=== PATIENT | female | born 1965 | race Caucasian/White ===

== ENCOUNTER → 2016-11-16 | Outpatient (CLI) | payer OTHER ==
[~2016-11-16] VITALS: Ht 160 cm; Wt 113.4 kg
[~2016-11-16] MED LIST: ARICEPT PO; BUSPIRONE HCL10 MG PO; CATAPRES0.2 MG PO; CYMBALTA60 MG PO; D AMPHETAMINE PO; DEXTROAMPHETAMIN5 M2 PO; DIAZEPAM PO; DONEPEZIL HCL10 MG PO; ENDOCET 5-3251 EACH PO; FLEXERIL PO; FLOVENT HFA 1110 MCG IH; FLOVENT HFA 1110 MCG INH; GABAPENTIN PO; GABAPENTIN800 M1 PO; HYDROCODONE-APA1 TA1 PO; LISINOPRIL-HCT1 EACH PO; MINIPRESS5 MG PO; MOBIC7.5 MG PO; MULTIVITAMINS PO; NEURONTIN 400400 M1 PO; PRAZOSIN 1 MG CA1 M1 PO; SERTRALINE PO; VENTOLIN HFA 1818 GM INH; [UNRECOGNIZED DRUG - OTHER] PO
--- NOTE | ~2016-11-16 | S ---
[facility] [place] [address] [place] [address] SURGICAL PATH RPT PROCEDURE Name: ENZO CALLOWAY Room #: REG [facility]..#: [id number] Admission: 11/16/16 Date of : 61 Discharge: Report #: [id number] Path Case #: [id number] PATHOLOGY REPORT COLLECTION DATE: 11/16/2016 RECEIVED DATE: 11/16/2016 SUBMITTING PHYS: Dr. Randell Alvarado OTHER PHYS: Dr. Pat Ny SPECIMEN(S) RECEIVED: A.Polyp at proximal ascending colon (forcep) B.Polyp at 20 cm (snare) * * * * * * * * * * * * FINAL DIAGNOSIS: A. Polyp, at proximal ascending colon, endoscopic biopsy: - Minute tubular adenoma. - Negative for high-grade dysplasia. B. Polyp, at 20 cm, endoscopic biopsy: - Hyperplastic polyp. - Negative for dysplasia. (IUV:pit; 11/19/2016) PATHOLOGIST: Azul Reyes M.D. REPORT ELECTRONICALLY SIGNED BY: Azul Reyes M.D. DATE/TIME: 11/19/2016 16:11 * * * * * * * * * * * * GROSS PATHOLOGY: A. Received in formalin labeled "Enzo Calloway, polyp at proximal ascending colon," is a segment of glaser soft tissue measuring 0.4 cm in maximum dimension. The specimen is submitted entirely in cassette A1. B. Received in formalin labeled "Enzo Calloway, polyp at 20 cm," is a segment of glaser soft tissue measuring 0.5 cm in maximum dimension. The specimen is submitted entirely in cassette B1. (KAH; 11/17/2016) CLINICAL HISTORY: Pre-op diagnosis: Family history of colon cancer and colon polyps Post-op diagnosis: Colon polyps, diverticulosis INITIAL CPT CODE(S): A; 30668 B; 61914 Professional services performed by [facility] at [facility] [address] [place] [address] SURGICAL PATH RPT PROCEDURE Name: ENZO CALLOWAY Room #: REG [facility].#: [id number] Admission: 11/16/16 Date of : 61 Discharge: Report #: [id number] Path Case #: [id number] [address], [place] [address] [facility] by [facility] at [address] [place] [address], [facility] [address] [address]. [place] [address] PHONE: [phone] DIRECTOR: Archie Phillips M.D. * * * END OF REPORT * * *
== END | disposition home or self-care (01) ==
LOC: GI 06:28
DX: Z09 Encounter for follow-up examination after completed treatment for conditions other than malignant neoplasm (principal); D12.2 Benign neoplasm of ascending colon; K63.5 Polyp of colon; K21.9 Gastro-esophageal reflux disease without esophagitis; K57.30 Diverticulosis of large intestine without perforation or abscess without bleeding; I10 Essential (primary) hypertension; J45.909 Unspecified asthma, uncomplicated; F32.89 Other specified depressive episodes; F41.8 Other specified anxiety disorders; F17.210 Nicotine dependence, cigarettes, uncomplicated; Z79.899 Other long term (current) drug therapy; Z80.0 Family history of malignant neoplasm of digestive organs; Z98.890 Other specified postprocedural states
CPT/HCPCS: 62110; 62900

== ENCOUNTER → 2017-01-11 | Outpatient (CLI) | payer OTHER ==
[~2017-01-11] VITALS: Ht 160 cm; Wt 119.3 kg
[~2017-01-11] MED LIST changes: +MOBIC15 MG PO
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
[2017-01-11 09:56] VITALS: BP 158/85
== END | disposition home or self-care (01) ==
LOC: PAIN 01-09 13:08
DX: M54.16 Radiculopathy, lumbar region (principal); I10 Essential (primary) hypertension; J45.909 Unspecified asthma, uncomplicated; F41.8 Other specified anxiety disorders; F98.8 Other specified behavioral and emotional disorders with onset usually occurring in childhood and adolescence; Z87.820 Personal history of traumatic brain injury; Z98.890 Other specified postprocedural states; Z79.899 Other long term (current) drug therapy; F17.210 Nicotine dependence, cigarettes, uncomplicated

== ENCOUNTER → 2017-02-01 | Outpatient (CLI) | payer OTHER ==
[~2017-02-01] VITALS: Ht 162.6 cm; Wt 120.7 kg
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
[2017-02-01 10:28] VITALS: BP 163/87
== END | disposition home or self-care (01) ==
LOC: PAIN 07:48
DX: M54.16 Radiculopathy, lumbar region (principal); Z68.42 Body mass index [BMI] 45.0-49.9, adult; F17.210 Nicotine dependence, cigarettes, uncomplicated

== ENCOUNTER → 2017-02-14 | Outpatient (CLI) | payer OTHER ==
[~2017-02-14] VITALS: Ht 162.6 cm; Wt 117.5 kg
--- NOTE | ~2017-02-14 | HPC ---
[facility] [place] [address] PAIN MANAGEMENT CONSULTATION Name: ENZO CALLOWAY Room #: REG [facility].#: [id number] Admission: 02/14/17 Attend Phys: Paulo Muse, Discharge: Date of : 61 Report #: [id number] THIS REPORT FOR: //name// CC: Pat Muse The patient is a very pleasant 52-year-old female, prior seen on 02/01/2017. She had a single epidural injection with near 100% relief for a long time. Pain has begun to recur, we sought authorization for epidural injection under fluoroscopy today. Again, 100% relief was in 2013. She had on 01/11/2017 epidural injection with greater than 50% relief for 4-6 weeks. We sought authorization for repeat epidural injection under fluoroscopy today. Today, she notes the pain is 7 on a VAS, primarily low back and leg, bilateral, exacerbated with standing, walking and bending. VITAL SIGNS: Otherwise stable. ASSESSMENT: Symptomatic lumbar radiculopathy. PROCEDURE: Lumbar epidural steroid injection. PROCEDURE NOTE: After both written and informed consent to include risk of spinal cord damage, increased pain, weakness and dural puncture, the patient was taken to the fluoroscopy suite, placed in the prone position. After sterile prep and drape, a skin wheal with lidocaine was raised. A 22-gauge epidural Tuohy needle was inserted in the midline at L4-L5 with good loss to resistance. Negative aspiration for cerebrospinal fluid or blood was noted. Then 1 mL of Omnipaque under biplanar fluoroscopy showed good spread within the epidural space. This was followed with 80 mg of triamcinolone plus 1 mL of 1.5% preservative-free Xylocaine, 0.5 mL Xylocaine was then injected to flush the needle; it was removed. The patient was monitored for an appropriate period of time and discharged in good and stable condition. Follow up in 3 weeks for reevaluation, earlier if needed. <ELECTRONICALLY SIGNED> By: Paulo Muse DO 02/18/17 0840 1232 1005 Paulo Muse DO /nt
[2017-02-14 08:06] VITALS: BP 141/80
== END | disposition home or self-care (01) ==
LOC: PAIN 06:25
DX: M54.16 Radiculopathy, lumbar region (principal); F17.200 Nicotine dependence, unspecified, uncomplicated

== ENCOUNTER 2018-03-08 15:50 | Inpatient (IN) | payer OTHER ==
[~2018-03-08] VITALS: Ht 160 cm; Wt 125.2 kg
--- NOTE | ~2018-03-08 | 2DMMODE ---
[facility] [address] [place] [address] 2 D/M-MODE ECHOCARDIOGRAM Name: ENZO CALLOWAY Room #: 457-P ADM IN M.R.#: [id number] Admission: 03/08/18 Attend Phys: Sanya Olsen, Discharge: Date of : 61 Date of Service: 03/10/18 1027 Report #: [id number] THIS REPORT FOR: //name// APPROVED REPORT Study performed: 03/10/2018 08:48:03 EXAM: Comprehensive 2D, Doppler, and color-flow Echocardiogram Patient Location: Echo lab Room #: [facility] Status: routine BSA: 2.22 HR: 64 bpm BP: 146/78 mmHg Rhythm: NSR Other Information Study Quality: Adequate/morbidly obese Indications Syncope. Hx: HTN, seizures 2D Dimensions RVDd: 35.69 mm IVSd: 11.09 (7-11mm) LVOT Diam: 21.25 (18-24mm) LVDd: 51.21 mm PWd: 8.98 (7-11mm) Ascending Ao: 35.10 (22-36mm) LVDs: 32.70 (25-40mm) Aortic Root: 31.98 mm Volumes Left Atrial Volume (Systole) Single Plane 4CH: 39.25 mL Single Plane 2CH: 48.17 mL LA ESV Index: 22.00 mL/m2 Aortic Valve AoV Peak Shorty.: 1.72 m/s AO Peak Gr.: 11.78 mmHg LVOT Max P.20 mmHg LVOT Max V: 1.25 m/s ZANA Vmax: 2.57 cm2 Mitral Valve E/A Ratio: 1.4 MV Decel. Time: 193.12 ms MV E Max Shorty.: 1.04 m/s [facility] [place] [address] [place] [address] 2 D/M-MODE ECHOCARDIOGRAM Name: ENZO CALLOWAY Room #: [address] [place] [address] IN ..#: [id number] Admission: 03/08/18 Attend Phys: Sanya Olsen, Discharge: Date of : 61 Date of Service: 03/10/18 1027 Report #: [id number] MV A Shorty.: 0.72 m/s MV PHT: 56.01 ms IVRT: 65.74 ms Pulmonary Valve PV Peak Shorty.: 1.35 m/s PV Peak Gr.: 7.32 mmHg Pulmonary Vein P Vein S: 0.71 m/s P Vein A: 0.32 m/s P Vein D: 0.63 m/s P Vein A Dur.: 120.0 msec P Vein S/D Ratio: 1.13 Tricuspid Valve RAP Estimate: 5.00 mmHg Left Ventricle The left ventricle is normal size. There is normal LV segmental wall motion. There is normal left ventricular wall thickness. Left ventricular systolic function is normal. LVEF is 60-65%. The left ventricular diastolic function is normal. Right Ventricle The right ventricle is normal size. The right ventricular systolic function is normal. Atria The left atrium size is normal. The right atrium size is normal. Aortic Valve The aortic valve is normal in structure. No aortic regurgitation is present. There is no aortic valvular stenosis. Mitral Valve The mitral valve is normal in structure. Trace to mild mitral regurgitation. Tricuspid Valve The tricuspid valve is normal in structure. There is no tricuspid valve regurgitation noted. Unable to assess PA pressure. Pulmonic Valve Pulmonic valve is not well visualized. There is no pulmonic valvular regurgitation noted. [employer] [place] [facility] [address] [place] [address] 2 D/M-MODE ECHOCARDIOGRAM Name: ENZO CALLOWAY Room #: 457-P [facility] IN ..#: [id number] Admission: 03/08/18 Attend Phys: Sanya Olsen, Discharge: Date of : 61 Date of Service: 03/10/18 1027 Report #: [id number] The aortic root is normal in size. The ascending aorta is normal in size. IVC is normal in size and collapses >50% with inspiration. Pericardium There is no pericardial effusion. <Conclusion> The left ventricle is normal size. LVEF is 60-65%. The aortic valve is normal in structure. The mitral valve is normal in structure. Trace to mild mitral regurgitation. The tricuspid valve is normal in structure. Pulmonic valve is not well visualized. There is no pericardial effusion. <ELECTRONICALLY SIGNED> By: Jesus Ahn MD 03/10/18 1027 1027 102 Jesus Ahn MD /INF
--- NOTE | ~2018-03-08 | EKG ---
[address] [address] ELECTROCARDIOGRAM REPORT Name: ENZO CALLOWAY Room #: 457-P ADM IN M.R.#: [id number] Admission: 03/08/18 Attend Phys: Sanya Olsen MD Discharge: Date of : 61 Report #: [id number] THIS REPORT FOR: //name// [facility] ED Test Date: 2018-03-08 Test Time: 15:56:59 Pat Name: ENZO CALLOWAY Department: Room: [facility] Gender: F [employer]ovoltaic Installer: CALEB : 1965 Requested By: Jhonny Rojsa Order Number: [id number] MD: Kendrick Cassidy Measurements Intervals [place] Rate: 85 P: 35 VA: 153 QRS: 19 QRSD: 98 T: 55 QT: 368 QTc: 438 Interpretive Statements Sinus rhythm No previous ECG available for comparison Electronically Signed On 03-10-2018 8:30:05 CDT by Kendrick Cassidy [email or web address] <ELECTRONICALLY SIGNED> By: Kendrick Cassidy MD 03/10/18 0830 1556 1556 MD JOSE M Tracey
[2018-03-08 15:53] VITALS: BP 87/37
[2018-03-08] MEDS ORDERED: XANAX 0.5 MG0.5 MG PO (16:29)
[2018-03-08 16:56] LABS: ABSOLUTE NEUTROPHILS 6.1 thou/uL (1.4-8.2); BASOPHILS 0.6 % (0.0-2.0); EOSINOPHILS 3.9 % (0.0-3.0); HEMATOCRIT 36.5 % (37.0-47.0); HEMOGLOBIN 12.7 gm/dL (12.0-15.0); LYMPHOCYTES 18.8 % (24.0-44.0); MCH 31.8 pg (26.0-34.0); MCHC 34.8 g/dL (28.0-37.0); MCV 91.5 fL (80.0-100.0); MONOCYTES 5.1 % (1.0-8.0); PLATELET COUNT 255 thou/uL (150-400); POLYS 71.6 % (36.0-66.0); RBC 3.99 mil/uL (4.20-5.00); RDW 13.9 % (10.5-14.5); WBC 8.5 thou/uL (4.0-11.0)
[2018-03-08 17:12] LABS: ANION GAP 9 mmol/L (7-16); BUN 33 mg/dL (7-18); CALCIUM 9.2 mg/dL (8.5-10.1); CHLORIDE 103 mmol/L (98-107); CO2 25 mmol/L (21-32); CREATININE 1.8 mg/dL (0.6-1.0); GLUCOSE 118 mg/dL (74-106); POTASSIUM 4.2 mmol/L (3.5-5.1); SODIUM 137 mmol/L (136-145)
[2018-03-08 17:17] LABS: ALBUMIN 3.3 g/dL (3.4-5.0); DIRECT BILIRUBIN < 0.1 mg/dL (<0.1-0.3); SGOT 15 U/L (15-37); SGPT 31 U/L (30-65); TOTAL BILIRUBIN 0.2 mg/dL (<0.1-1.0); TOTAL PROTEIN 6.7 g/dL (6.4-8.2); TROPONIN-I <0.06 ng/mL (<0.06)
[2018-03-08 17:32] LABS: URINE BILIRUBIN NEGATIVE (Negative); URINE BLOOD NEGATIVE (Negative); URINE CLARITY CLEAR; URINE COLOR YELLOW; URINE GLUCOSE-RANDOM* NEGATIVE (Negative); URINE KETONES TRACE (Negative); URINE NITRITE-REFLEX NEGATIVE (Negative); URINE PROTEIN (DIPSTICK) 1+ (Negative); URINE SPECIFIC GRAVITY 1.015 (1.005-1.035); URINE UROBILINOGEN 0.2 E.U./dl (0.2-1.0)
[2018-03-08 17:34] LABS: URINE LEUKOCYTES-REFLEX 1+ (Negative)
[2018-03-08 17:41] LABS: AMP/METHAMP Negative (Negative); BARBITURATES Negative (Negative); BENZODIAZEPINES POSITIVE (Negative); COCAINE Negative (Negative); METHADONE Negative (Negative); OPIATES POSITIVE (Negative); PCP Negative (Negative)
[2018-03-08 17:46] LABS: HYALINE CASTS 4-10 Moderate /LPF (None Seen); SQUAMOUS 4-10 Moderate /LPF (0-3)
[2018-03-08 17:47] LABS: MUCUS >6 Heavy strn/LPF (None Seen); URINE RBC 0-2 Rare /HPF (0-2)
[2018-03-08 17:48] LABS: BACTERIA-REFLEX 1-9 Few /HPF (None Seen); CRYSTALS None Seen /LPF (None Seen)
[2018-03-08 18:37] VITALS: BP 95/43
[2018-03-08 18:46] VITALS: BP 95/43
[2018-03-08 19:09] LABS: TSH 4.152 uIU/mL (0.358-3.740)
[2018-03-08 22:48] VITALS: BP 95/43
[2018-03-09 00:10] VITALS: BP 114/62
[2018-03-09 03:25] VITALS: BP 120/57
[2018-03-09 05:53] LABS: HEMATOCRIT 33.4 % (37.0-47.0); HEMOGLOBIN 11.3 gm/dL (12.0-15.0); MCHC 33.9 g/dL (28.0-37.0); MCV 91.3 fL (80.0-100.0); RBC 3.66 mil/uL (4.20-5.00); RDW 13.5 % (10.5-14.5); WBC 7.3 thou/uL (4.0-11.0)
[2018-03-09 06:00] LABS: CALCIUM 8.8 mg/dL (8.5-10.1); CREATININE 1.4 mg/dL (0.6-1.0); POTASSIUM 3.8 mmol/L (3.5-5.1)
[2018-03-09 07:43] VITALS: BP 139/71
[2018-03-09 15:03] VITALS: BP 144/80
[2018-03-09 20:05] VITALS: BP 155/85
[2018-03-09 22:09] VITALS: BP 155/85
[2018-03-10 04:56] VITALS: BP 146/78
[2018-03-10 06:05] LABS: HEMATOCRIT 36.7 % (37.0-47.0); HEMOGLOBIN 12.2 gm/dL (12.0-15.0); MCH 30.3 pg (26.0-34.0); MCHC 33.3 g/dL (28.0-37.0); MCV 90.8 fL (80.0-100.0); RBC 4.05 mil/uL (4.20-5.00); RDW 13.8 % (10.5-14.5); WBC 6.2 thou/uL (4.0-11.0)
[2018-03-10 06:20] LABS: CALCIUM 9.1 mg/dL (8.5-10.1); CREATININE 1.1 mg/dL (0.6-1.0); MAGNESIUM 1.9 mg/dL (1.8-2.4); POTASSIUM 4.3 mmol/L (3.5-5.1)
[2018-03-10 08:00] VITALS: BP 144/66
[2018-03-10] MEDS ORDERED: LISINOPRIL5 MG PO (11:52)
[2018-03-10] MEDS ORDERED: KEFLEX500 M1 PO (11:56)
[2018-03-10 12:25] VITALS: BP 144/66
== END 2018-03-10 15:55 | disposition home or self-care (01) | DRG 871 ==
LOC: ER 15:50 → EROBS 18:19 → 4W 18:19
PROVIDERS: Emergency Medicine; Internal Medicine
DX: A41.9 Sepsis, unspecified organism (principal); N17.0 Acute kidney failure with tubular necrosis; L03.316 Cellulitis of umbilicus; N39.0 Urinary tract infection, site not specified; E44.1 Mild protein-calorie malnutrition; Z68.42 Body mass index [BMI] 45.0-49.9, adult; I95.1 Orthostatic hypotension; J45.909 Unspecified asthma, uncomplicated; F41.9 Anxiety disorder, unspecified; F32.9 Major depressive disorder, single episode, unspecified; K21.9 Gastro-esophageal reflux disease without esophagitis; G62.9 Polyneuropathy, unspecified; I10 Essential (primary) hypertension; F17.210 Nicotine dependence, cigarettes, uncomplicated; N28.89 Other specified disorders of kidney and ureter; E66.9 Obesity, unspecified; Z90.49 Acquired absence of other specified parts of digestive tract; Z87.81 Personal history of (healed) traumatic fracture; Z87.820 Personal history of traumatic brain injury; Z79.51 Long term (current) use of inhaled steroids; Z79.899 Other long term (current) drug therapy; Z23 Encounter for immunization
CPT/HCPCS: 10045

== ENCOUNTER 2018-10-07 00:49 | Emergency (ER) | payer OTHER ==
[~2018-10-07] VITALS: Ht 162.6 cm; Wt 104.3 kg
[~2018-10-07 00:49] MED LIST changes: +KEFLEX500 M1 PO; +LISINOPRIL5 MG PO; +XANAX 0.5 MG0.5 MG PO
[2018-10-07] MEDS ORDERED: PREDNISONE 20 M20 MG PO (04:12)
[2018-10-07 04:19] VITALS: BP 168/90
== END 2018-10-07 04:20 | disposition home or self-care (01) ==
LOC: ER 00:49
DX: J45.901 Unspecified asthma with (acute) exacerbation (principal); F17.210 Nicotine dependence, cigarettes, uncomplicated; F32.9 Major depressive disorder, single episode, unspecified; F41.9 Anxiety disorder, unspecified; I10 Essential (primary) hypertension; Z90.49 Acquired absence of other specified parts of digestive tract

== ENCOUNTER → 2020-06-08 | Outpatient (CLI) | payer OTHER ==
[~2020-06-08] VITALS: Ht 162.6 cm; Wt 132.0 kg
[~2020-06-08] MED LIST changes: +FLOVENT DISKU100 MCG INH; +NEURONTIN800 MG PO; +PREDNISONE 20 M20 MG PO; +PROAIR DIGIHAL90 MCG INH
[2020-06-08 14:56] VITALS: BP 145/75
--- NOTE | 2020-06-08 15:20 | NUR ---
Pain Clinic Assessment: 1. History of Osteoarthritis: BACK History of Rheumatoid Arthritis: Not Applicable 2. Height: 5 ft. 4 in. 162.6 cm. Weight: 291.0 lb. oz. 131.997 kg. Patient's BMI: 49.9 3. Vital Signs: BP: 145/75 Pulse: 88 Resp: 20 Temp: 02 Sat: 97 ECG Mon: 4. Pain Intensity: 6 5. Fall Risk: Dizziness: N Needs help standing or walking: N Fallen in the last 3 months: N Fall risk comments: 6. Patient on Blood Thinner: None 7. History of Hypertension: Y 8. Opioid Therapy greater than 6 weeks: Y Opiate Contract Signed: 9. Risk Assessment Tool Provided: HIGH 9 10. Functional Assessment Tool: / 11. Recreational Drug Use: Never Drug Type: Tobacco Use: Former Smoker Tobacco Type: Amount or Packs/day: How Many Years: Alcohol Use: No Frequency: Quant:
--- NOTE | 2020-06-14 08:07 | HPC ---
[facility] [place] [address] PAIN MANAGEMENT CONSULTATION Name: ENZO CALLOWAY Room #: REG [facility] M..#: [id number] Admission: 06/08/20 Attend Phys: Palomo Muse DO Discharge: Date of : 61 Report #: [id number] THIS REPORT FOR: cc: Pat Ny MD, Sara A. MD Johnson, James E. DO ~ DATE OF SERVICE: 06/08/2020 CHIEF COMPLAINT: Left buttock and posterolateral thigh pain. HISTORY OF PRESENT ILLNESS: As you know, the patient is a class 3 severely morbidly obese 55-year-old female, who reports a 6-month history of low-back pain, left-sided, specifically with posterolateral thigh involvement. The patient has sought consultation and treatment through [facility] for pain relief, seeing nurse practitioner, Yumiko Dooley, who evaluated the patient and determined her symptoms appear to be related to SI joint dysfunction. The patient was subsequently referred to our clinic to trial a left intra-articular SI joint injection under fluoroscopic guidance to address ongoing pain. The patient reports her pain is steady in nature. She describes the pain as shooting, crushing, gnawing, throbbing, sharp and stabbing when describing symptoms. She places current pain score 6/10, daily average at 6-10/10, worst pain has been 10+++/10. She indicates that pain is exacerbated with movement, specifically standing and sitting, improves with heat and cold compresses and rest. She has been referred to our service to discuss the possibility of undergoing a left SI joint injection under fluoroscopic guidance. PAST MEDICAL HISTORY: 1. Asthma. 2. Hypertension. 3. Seasonal allergies. 4. Severe morbid obesity. 5. Anxiety disorder. 6. Depression. 7. Chronic kidney disease. 8. PTSD. 9. Left sacroiliac joint pain. PAST SURGICAL HISTORY: Right humerus ORIF in 2008, cholecystectomy in 2016. SOCIAL HISTORY: The patient has a remote history of tobacco abuse, quit at age 19. Denies IV or illicit drug use. Denies any chronic alcohol use. 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 She is receiving disability income. She is not in litigation in regards to pain. She is unaccompanied today. [address] [address] PAIN MANAGEMENT CONSULTATION Name: ENZO CALLOWAY Room #: REG [facility] Swapnil.#: [id number] Admission: 06/08/20 Attend Phys: Palomo Muse DO Discharge: Date of : 61 Report #: [id number] REVIEW OF SYSTEMS: Positive for increased weight, night sweats, fatigue and weakness, wearing corrective eyewear, shortness of breath with walking, asthma, wheezing, changes in bowel movements, constipation, abdominal pain, nocturia, incontinence and dribbling to urine, rash and itching, numbness and tingling sensations, head injury, memory loss with confusion, nervousness, depression, insomnia. All other review of systems negative per 12-point review of systems other than those listed in history of present illness. Pain impact score 46/70, severe interference of daily activities secondary to pain. ALLERGIES: NONSTEROIDAL ANTI-INFLAMMATORIES and CIMETIDINE. CURRENT MEDICATIONS: Duloxetine 60 mg twice a day, Minipress 10 mg once a day, dextroamphetamine 5 mg 3 tabs twice a day, buspirone 5 mg b.i.d., oxycodone 5/325 one tab t.i.d. p.r.n., alprazolam 0.5 mg p.o. at bedtime, albuterol 2 puffs q.4 hours p.r.n., lisinopril 5 mg per day, Neurontin 800 mg 4 times a day, fluticasone 1 spray each nostril per day. IMAGING: No imaging available. PQRS: The patient has known arthritic changes of the lumbar spine, bilateral hips and knees. No rheumatoid arthritis. She is placing pain score today around 6/10. She is not a fall risk, has not had a fall in the last 3 months. She is not on blood thinners, but is treated for hypertension. She is on chronic opioids and has a high opioid addiction potential based on our assessment tool. Pain impact is 46/70, severe interference of daily activities secondary to pain. PHYSICAL EXAMINATION: VITAL SIGNS: Blood pressure 145/75, pulse 88, respiratory rate 20, O2 sat 97%. Height 5 feet 4 inches tall, weight 291 pounds, BMI calculated at 49.9. GENERAL: Well-developed, well-nourished, well-hydrated, class 3 severely morbidly obese female, appearing her stated age, pain is rated today around 6/10. HEENT: Normocephalic, atraumatic. Pupils are round and responsive. Extraocular muscles are intact. Hearing is intact. The patient is wearing a mask due to COVID-19 regulations. RESPIRATORY: Appears clear. No wheezes, rhonchi or rales. There are diminished breath sounds due to body habitus. CARDIOVASCULAR: Regular. Again, difficult to hear due to body habitus. No appreciable murmurs, gallops or rubs. GASTROINTESTINAL: Soft, severely obese. EXTREMITIES: Show no clubbing, no cyanosis, 1+ nonpitting lower extremity edema. MUSCULOSKELETAL: The patient has tenderness to palpation over the left sacroiliac joint, negative right. Lumbar range of motion appears normal, though somewhat limited by body habitus. Seated straight leg raising negative. Supine [facility] [address] [place] [address] PAIN MANAGEMENT CONSULTATION Name: ENZO CALLOWAY Room #: REG [facility]..#: [id number] Admission: 06/08/20 Attend Phys: Palomo Muse DO Discharge: Date of : 61 Report #: [id number] straight leg raising negative. Ne's test is negative. Modified Gaenslen's is limited by body habitus. Lumbar provocation testing is met with slight increase in left pain. Seated position exacerbates symptoms less. ASSESSMENT: 1. Left sacroiliac joint pain. 2. Chronic low-back pain. 3. Severe morbid obesity. PLAN: 1. The patient has been referred to our service by her neurosurgery team for evaluation for left SI joint pain. It would appear, based on physical exam and the descriptors the patient uses, this would be the source of symptoms. Unfortunately, I do not have imaging studies, but given the patient's age and body habitus, it would be consistent with left SI joint symptoms secondary to osteoarthritic changes. It is noted in Yumiko Dooley's note that there were arthritic changes noted on imaging. We have discussed with the patient the treatment options for SI joint dysfunction. The following was discussed with the patient today: 1. We discussed physical therapy, stretching exercises, stretching techniques and concerted effort at weight loss to address SI joint dysfunction. We discussed suggestions in medication management to address symptoms with nonsteroidal anti-inflammatories. We discussed left intraarticular SI joint injections for which the patient was referred to our clinic. We also discussed surgical options with the patient, with fusion of the SI joint, though given her body habitus, she may not be an ultimate candidate for fusion. After reviewing the risks and benefits of all the proposed treatment options, the patient chose to undergo the requested left SI joint injection under fluoroscopic guidance. 2. The patient has been advised risks and benefits of a left SI joint injection. These risks include, but are not necessarily limited to; bleeding, bruising, infection, worsening of pain, no relief of pain, temporary or permanent muscle weakness, temporary or permanent nerve damage, possible paralysis and . The patient states understood and wished to proceed. 3. No medication changes made at today's visit. We recommend the patient to continue current medical therapy as prior prescribed. 4. The patient will contact Yumiko Dooley over the next couple of weeks to advise of the efficacy of today's injection. I did advise the patient if she notes initial improvement in symptoms, but her symptoms do return quite quickly, that fusion options may be necessary given the lack of long-term efficacy. If the patient is seeing good and prolonged benefit with SI joint injections, we could certainly repeat these on an as needed basis. We will await the patient's response to the injections to determine whether or not this would be something necessary to continue. It was noted that the patient reported about 50% improvement today upon discharge from our clinic after undergoing the injection. 5. We will see the patient back in followup visit based on her response to the [address] [address] PAIN MANAGEMENT CONSULTATION Name: ENZO CALLOWAY Room #: REG [facility]#: [id number] Admission: 06/08/20 Attend Phys: Palomo E. Micha, DO Discharge: Date of : 61 Report #: [id number] SI joint injection provided today. Again, if the patient is seeing good and prolonged benefit, but has recurrence of symptoms, we would recommend the next in the SI joint injection series. If she notes only transient improvement in symptoms with recurrence of pain rapidly, she should look for more definitive treatments. 6. We wish to thank Yumiko Dooley for the opportunity to see this patient in consultation. We will keep you apprised of response to treatment as we address left SI joint pain. Again, we wish to thank you for the opportunity to see the patient in consultation. PROCEDURE NOTE DESCRIPTION OF PROCEDURE: Left SI joint injection under fluoroscopic guidance. This is the first procedure of the first series that the patient is undergoing. After obtaining written consent, the patient was taken back to the fluoroscopy suite and placed in a prone position with a pillow under the pelvis to decrease the lumbar lordosis. The skin of the gluteal-sacral area overlying the left sacroiliac joint was prepped and draped in an aseptic fashion. A medial to lateral oblique projection allowed separation of the anterior and posterior branches of the joint space. The skin and subcutaneous tissue overlying the target site of injection was anesthetized using 3 mL of 1% lidocaine. A 22-gauge 6-inch Chiba needle with a bent tip was directed into the inferior aspect of the sacroiliac joint using a posterior approach. A giving way at the needle hub was noted once the dorsal sacroiliac and interosseous ligaments were engaged. After negative aspiration for heme, a total of 0.5 mL of Omnipaque was injected, outlining the coin-shaped inferior recess of the joint. Provocation responses consisting of intense buttock pain were negative. After negative aspiration for heme, 3 mL of a solution containing 1 mL 40 mg per mL, 40 mg total triamcinolone, 2 mL of bupivacaine 0.5% was slowly injected. The needle was then retracted approximately [facility] and the needle track was flushed with 1 mL of 1% lidocaine. Needle was then removed. A sterile bandage was placed over the injection site. There were no new sensory deficits present in the lower extremities. The heart rate, pulse oximetry and blood pressure were continuously monitored after the procedure. There were no apparent complications. The patient tolerated the procedure well and was carefully escorted to the recovery room in stable condition. The VAS was 6/10 before the procedure and 3-4/10 ten minutes after the procedure. After meeting discharge criteria, the patient was discharged home. <ELECTRONICALLY SIGNED> By: Palomo Muse DO 06/14/20 [id number] Palomo Muse DO /nt
== END | disposition home or self-care (01) ==
LOC: PAIN 07:41
PROVIDERS: ATTEND Anesthesiology Pain Medicine
DX: M53.3 Sacrococcygeal disorders, not elsewhere classified (principal); M54.5 Low back pain; G89.29 Other chronic pain; I12.9 Hypertensive chronic kidney disease with stage 1 through stage 4 chronic kidney disease, or unspecified chronic kidney disease; N18.9 Chronic kidney disease, unspecified; M19.90 Unspecified osteoarthritis, unspecified site; F32.9 Major depressive disorder, single episode, unspecified; F41.9 Anxiety disorder, unspecified; J45.909 Unspecified asthma, uncomplicated; E66.01 Morbid (severe) obesity due to excess calories; Z98.890 Other specified postprocedural states; Z79.899 Other long term (current) drug therapy; Z68.42 Body mass index [BMI] 45.0-49.9, adult; Z79.891 Long term (current) use of opiate analgesic; Z88.8 Allergy status to other drugs, medicaments and biological substances

== ENCOUNTER → 2020-11-01 | Outpatient (CLI) | payer OTHER ==
[~2020-11-01] VITALS: Ht 162.6 cm; Wt 124.3 kg
--- NOTE | ~2020-11-01 | HPC ---
[facility] [place] [address] PAIN MANAGEMENT CONSULTATION Name: ENZO CALLOWAY Room #: REG [facility].#: [id number] Admission: 11/01/20 Attend Phys: Palomo Muse DO Discharge: Date of : 61 Report #: [id number] THIS REPORT FOR: cc: Pat Ny MD, Sara A. MD Johnson, James E. DO ~ DOC #: [id number] cc: Pat Ny MD, Yumiko Muse DO DATE OF SERVICE: 11/01/2020 REFERRING NURSE PRACTITIONER: Yumiko Dooley. PRIMARY CARE PHYSICIAN: Dr. Pat Ny CHIEF COMPLAINT: Left low back and buttock pain, left knee pain. HISTORY OF PRESENT ILLNESS: As you know, the patient is a 55-year-old class 3, severely morbidly obese 55-year-old female with a 9-month history of chronic low back pain, left-sided over the posterolateral thigh who was seen in consultation per the request of nurse practitioner, Yumiko Dooley with the [facility] to undergo the SI joint injection under fluoroscopic guidance. The patient underwent that procedure on 06/08/2020 with a reported 80% improvement in overall pain lasting for nearly 6 weeks. She has had a slow and progressive return of symptoms, returned today in followup visit requesting next in the series of SI joint injections. The patient is also complaining of increasing left knee pain and swelling over the left knee. She has yet to have any workup in regards to this issue. She returns today in followup visit for SI joint injection and to discuss further evaluation of this left knee issue. ALLERGIES: NONSTEROIDAL ANTI-INFLAMMATORIES AND CIMETIDINE. CURRENT MEDICATIONS: Gabapentin, lisinopril, fluticasone, albuterol, alprazolam, oxycodone, buspirone, dextroamphetamine, prazosin and Cymbalta. SOCIAL HISTORY: The patient has a remote tobacco history, quit at age 19. Denies IV or illicit drug use. Denies any chronic alcohol use. She is unaccompanied today. IMAGING: No new imaging available. PQRS: The patient has known arthritic changes of the lumbar spine, bilateral hips and knees. No rheumatoid arthritis. She is not a fall risk, has not had a fall in last 3 months. She is not on blood thinners, but is treated for hypertension. She is on chronic opioids, has a high opioid addiction potential based on our assessment tool. Pain impact is 46/70, severe interference of [facility] [address] [place] [address] PAIN MANAGEMENT CONSULTATION Name: ENZO CALLOWAY Room #: REG [facility] [place].#: [id number] Admission: 11/01/20 Attend Phys: Palomo Muse DO Discharge: Date of : 61 Report #: [id number] daily activities secondary to pain. PHYSICAL EXAMINATION: VITAL SIGNS: Blood pressure 121/60, pulse 89, respiratory rate 16 and unlabored. The patient 95% on room air. Height 5 feet 4 inches tall, weight 274 pounds, BMI calculated 47.0. GENERAL: Well-developed, well-nourished, well-hydrated class III, morbidly obese 55-year-old female appearing stated age. She is in no acute distress. Pain is rated today at 5/10. HEENT: Normocephalic, atraumatic. Pupils are round and responsive. She is wearing a mask in compliance with COVID-19 regulations. EXTREMITIES: Show no clubbing, no cyanosis and no edema. MUSCULOSKELETAL: Lower extremity strength is equal and symmetrical, but deconditioned. Lumbar provocation testing is met with only slight increase in left SI joint pain. Right thigh thrust maneuver test is positive on the left, negative right. BEAU test is positive on the left. Modified Gaenslen's positive for some axial back pain and SI joint symptoms, but limited by body habitus. Active and passive range of motion of the left knee is met with slight increase in pain. There is no theodora crepitus. ASSESSMENT: 1. Left sacroiliac joint pain. 2. Chronic low back pain. 3. Severe morbid obesity. 4. Left knee pain. PLAN: 1. The patient returns today in followup visit to undergo left SI joint injection under fluoroscopic guidance. She has done very well with the previous injection reporting 80% improvement in overall pain lasting for 6 weeks. She returns for the second in the series. The patient has been advised risks and benefits of the procedure, states understood and wished to proceed. 2. No medication changes made at today's visit. The patient will continue current medical therapy as prior prescribed. 3. We recommend the patient undergo x-ray imaging of the left knee. I have written for AP and lateral imaging of that knee to be done today. I will send the results to the primary care team if a referral for orthopedics is necessary, they can put forward to have that done. We will be able to review the patient's x-ray imaging at the followup visit and advised her of the options for treatment. 4. We will see the patient back in followup visit on an as needed basis for SI joint injection. We are hopeful the patient will see good and prolonged benefit with today's procedure. She can contact our clinic tomorrow in regards to the findings of the x-ray imaging. PROCEDURE NOTE: [facility] [address] [place] [address] PAIN MANAGEMENT CONSULTATION Name: ENZO CALLOWAY Room #: REG [facility]#: [id number] Admission: 11/01/20 Attend Phys: Palomo Muse DO Discharge: Date of : 61 Report #: [id number] DESCRIPTION OF PROCEDURE: Left SI joint injection under fluoroscopic guidance. This is the second procedure of the first series that the patient is undergoing. After obtaining written consent, the patient was taken back to the fluoroscopy suite and placed in a prone position with a pillow under the pelvis to decrease the lumbar lordosis. The skin of the gluteal-sacral area overlying the left sacroiliac joint was prepped and draped in an aseptic fashion. A medial to lateral oblique projection allowed separation of the anterior and posterior branches of the joint space. The skin and subcutaneous tissue overlying the target site of injection was anesthetized using 3 mL of 1% lidocaine. A 22-gauge 3-1/2 inch needle with a bent tip was directed into the inferior aspect of the sacroiliac joint using a posterior approach. A giving way at the needle hub was noted once the dorsal sacroiliac and interosseous ligaments were engaged. After negative aspiration for heme, a total of 0.5 mL of Omnipaque was injected, outlining the coin-shaped inferior recess of the joint. Provocation responses consisting of intense buttock pain were negative. After negative aspiration for heme, 3 mL of a solution containing 1 mL 40 mg per mL, 40 mg total triamcinolone along with 2 mL of bupivacaine 0.5% was slowly injected. The needle was then retracted approximately [facility] and the needle track was flushed with 1 mL of 1% lidocaine. Needle was then removed. A sterile bandage was placed over the injection site. There were no new sensory deficits present in the lower extremities. The heart rate, pulse oximetry and blood pressure were continuously monitored after the procedure. There were no apparent complications. The patient tolerated the procedure well and was carefully escorted to the recovery room in stable condition. The VAS was 5/10 before the procedure and 2/10 ten minutes after the procedure. After meeting discharge criteria, the patient was discharged home. DO HAYDEE Woods/CHAD By: [id number] Palomo Muse DO /nt
[2020-11-01 08:18] VITALS: BP 121/60
--- NOTE | 2020-11-01 08:31 | NUR ---
Pain Clinic Assessment: 1. History of Osteoarthritis: BACK History of Rheumatoid Arthritis: Not Applicable 2. Height: 5 ft. 4 in. 162.6 cm. Weight: 274.0 lb. oz. 124.286 kg. Patient's BMI: 47.0 3. Vital Signs: BP: 121/60 Pulse: 89 Resp: 16 Temp: 02 Sat: 95 ECG Mon: 4. Pain Intensity: 5 5. Fall Risk: Dizziness: N Needs help standing or walking: N Fallen in the last 3 months: N Fall risk comments: 6. Patient on Blood Thinner: None 7. History of Hypertension: Y 8. Opioid Therapy greater than 6 weeks: Y Opiate Contract Signed: 9. Risk Assessment Tool Provided: HIGH 9 10. Functional Assessment Tool: 11. Recreational Drug Use: Never Drug Type: Tobacco Use: Current Every Day Smoker Tobacco Type: Cigarettes Amount or Packs/day: 2 How Many Years: Alcohol Use: No Frequency: Quant:
== END | disposition home or self-care (01) ==
LOC: PAIN 06:54
PROVIDERS: ATTEND Anesthesiology Pain Medicine
DX: M53.3 Sacrococcygeal disorders, not elsewhere classified (principal); M54.5 Low back pain; G89.29 Other chronic pain; M25.562 Pain in left knee; E66.01 Morbid (severe) obesity due to excess calories; Z68.42 Body mass index [BMI] 45.0-49.9, adult; Z98.890 Other specified postprocedural states; Z79.899 Other long term (current) drug therapy

== ENCOUNTER → 2021-06-07 | Outpatient (CLI) | payer OTHER ==
[~2021-06-07] VITALS: Ht 162.6 cm; Wt 130.8 kg
[2021-06-07 08:04] VITALS: BP 130/64
--- NOTE | 2021-06-07 08:15 | NUR ---
Pain Clinic Assessment: 1. History of Osteoarthritis: BACK History of Rheumatoid Arthritis: Not Applicable 2. Height: 5 ft. 4 in. 162.6 cm. Weight: 288.4 lb. oz. 130.818 kg. Patient's BMI: 49.5 3. Vital Signs: BP: 130/64 Pulse: 87 Resp: 16 Temp: 02 Sat: 96 ECG Mon: 4. Pain Intensity: 7 5. Fall Risk: Dizziness: N Needs help standing or walking: N Fallen in the last 3 months: N Fall risk comments: 6. Patient on Blood Thinner: None 7. History of Hypertension: Y 8. Opioid Therapy greater than 6 weeks: Y Opiate Contract Signed: 9. Risk Assessment Tool Provided: HIGH 9 10. Functional Assessment Tool: 46/ 11. Recreational Drug Use: Never Drug Type: Tobacco Use: Current Every Day Smoker Tobacco Type: Cigarettes Amount or Packs/day: 1 PK/2 WEEKS How Many Years: 3 Alcohol Use: No Frequency: Quant:
--- NOTE | 2021-06-07 09:57 | HPC ---
[facility] [place] [address] PAIN MANAGEMENT CONSULTATION Name: ENZO CALLOWAY Room #: [facility].#: [id number] Admission: 06/07/21 Attend Phys: Palomo Muse DO Discharge: Date of : 61 Report #: [id number] THIS REPORT FOR: cc: Pat Ny MD,Palomo Hunter MD, DO ~ cc: Pat Ny MD, Yumiko Dooley DATE OF SERVICE: 06/07/2021 CHIEF COMPLAINT: Left low buttock pain and left lateral thigh pain. HISTORY OF PRESENT ILLNESS: As you know, the patient is a 56-year-old class 3 severely morbidly obese female with a 9-month history of chronic low back pain, left upper buttock and posterolateral thigh pain consistent with SI joint dysfunction. The patient is Yumiko Blackmonor at [facility] and advised to trial conservative treatment before looking towards a fusion of the SI joint. She has undergone 1 SI joint injection on 11/01/2020 with excellent benefit, reporting significant pain improvement until just recently where she has had a slow and progressive return of symptoms. She states that she rolled over in bed and felt a popping sensation and instantaneous pain. She has been "bedridden for 3 days" due to the pain. She places current pain score 7/10. She returns today in followup visit for SI joint injection under fluoroscopic guidance to address left sacroiliac joint pain reoccurrence. The patient unfortunately continues to smoke tobacco despite our discussion at our last visit to discontinue this activity. This is having a direct effect on the patient's perception of chronic pain through the nicotinic receptors. The patient needs to consider this as an option. She returns to discuss the next in the series of SI joint injections to address recurrent SI joint symptoms. ALLERGIES: NONSTEROIDAL ANTI-INFLAMMATORIES AND CIMETIDINE. CURRENT MEDICATIONS: Gabapentin, lisinopril, fluticasone, albuterol, alprazolam, oxycodone, buspirone, dextroamphetamine, Minipress and Cymbalta. SOCIAL HISTORY: The patient continues to smoke 1 pack tobacco per 2 weeks according to her history today, but she has smoked much higher level for years. She denies IV or illicit drug use. Denies any chronic alcohol use. She is unaccompanied today. IMAGING: No new imaging available. PQRS: The patient has known arthritic changes of lumbar spine, bilateral hips and knees. No rheumatoid arthritis. She is not a fall risk, has not had a fall in last 3 months. She is placing current pain score 7/10. She is not on blood thinners, but is treated for hypertension. She is on chronic opioids and has a high opioid addiction potential based on our assessment tool. Pain impact is [address] [address] PAIN MANAGEMENT CONSULTATION Name: ENZO CALLOWAY [id number] Admission: 06/07/21 Attend Phys: Plaomo Muse DO Discharge: Date of : 61 Report #: [id number] 46/70, severe interference of daily activities secondary to pain. PHYSICAL EXAMINATION: VITAL SIGNS: Blood pressure 130/64, pulse 87, respiratory rate 16 and unlabored. The patient is 96% on room air. Height 5 feet 4 inches tall, weight 288.4 pounds, BMI calculated 49.5. GENERAL: A well-developed, well-nourished, well-hydrated severely morbidly obese, class 3, 56-year-old female placing pain at a 7/10. HEENT: Normocephalic, atraumatic. Pupils are round. She is wearing a mask in compliance with COVID-19 regulations. EXTREMITIES: Show no clubbing, no cyanosis. There is 1+ nonpitting lower extremity edema bilaterally. MUSCULOSKELETAL: Lower extremity strength is symmetrical, but deconditioned. Fabere's test is negative. Thigh thrust maneuver on the left is positive. Andriy's test is positive on the left. ASSESSMENT: 1. Left sacroiliac joint pain. 2. Left sacroiliac joint dysfunction. 3. Chronic low back pain. 4. Severe morbid obesity. 5. Chronic intractable pain. PLAN: 1. The patient returns today in followup visit with recurrence of left SI joint pain. She is now placing pain score at 7/10. She indicates pain levels have increased after rolling over in bed and feeling a popping sensation in the area, which led to recurrence of symptoms. She returns today for SI joint injection. She has been advised risks and benefits of the procedure, states understood and wished to proceed. 2. No medication changes made at today's visit. 3. We had a long discussion today with the patient in regards to smoking cessation, but also in regards to seeking evaluation and treatment for dietary assistance. The patient's weight is a major contributor to her overall pain and disability. She needs to make adjustments in lifestyle to address this issue. We have offered to help the patient with information. She wishes to follow up with her PCP in regards to this issue. 4. We will see the patient back in followup visit on an as needed basis for the next in the series of SI joint injections. We are hopeful the patient will see good benefit with today's procedure. PROCEDURE NOTE DESCRIPTION OF PROCEDURE: Left sacroiliac joint injection under fluoroscopic guidance. [facility] [address] [place] [address] PAIN MANAGEMENT CONSULTATION Name: ENZO CALLOWAY Room #: [facility].#: [id number] Admission: 06/07/21 Attend Phys: Palomo Muse DO Discharge: Date of : 61 Report #: [id number] This is the second procedure of the first series that the patient is undergoing. After obtaining written consent, the patient was taken back to the fluoroscopy suite and placed in a prone position with a pillow under the pelvis to decrease the lumbar lordosis. The skin of the gluteal-sacral area overlying the left sacroiliac joint was prepped and draped in an aseptic fashion. A medial to lateral oblique projection allowed separation of the anterior and posterior branches of the joint space. The skin and subcutaneous tissue overlying the target site of injection was anesthetized using 3 mL of 1% lidocaine. A 22-gauge 6-inch needle with a bent tip was directed into the inferior aspect of the sacroiliac joint using a posterior approach. A giving way at the needle hub was noted once the dorsal sacroiliac and interosseous ligaments were engaged. After negative aspiration for heme, a total of 1 mL of Omnipaque was injected, outlining the coin-shaped inferior recess of the joint. Provocation responses consisting of intense buttock pain were negative. After negative aspiration for heme, 3 mL solution containing 1 mL 40 mg per mL, 40 mg total triamcinolone, 2 mL of bupivacaine 0.5% was slowly injected. The needle was then retracted approximately fdc and the needle track was flushed with 1 mL of 1% lidocaine. Needle was then removed. A sterile bandage was placed over the injection site. There were no new sensory deficits present in the lower extremities. The heart rate, pulse oximetry and blood pressure were continuously monitored after the procedure. There were no apparent complications. The patient tolerated the procedure well and was carefully escorted to the recovery room in stable condition. The VAS was 7/10 before the procedure and 5/10 ten minutes after the procedure. After meeting discharge criteria, the patient was discharged home. <ELECTRONICALLY SIGNED> By: Palomo Muse DO 06/07/21 [id number] Palomo Muse DO /nt
== END | disposition home or self-care (01) ==
LOC: PAIN 06:53
PROVIDERS: ATTEND Anesthesiology Pain Medicine
DX: M53.3 Sacrococcygeal disorders, not elsewhere classified (principal); M54.59 Other low back pain; G89.29 Other chronic pain; E66.01 Morbid (severe) obesity due to excess calories; I10 Essential (primary) hypertension; J45.909 Unspecified asthma, uncomplicated; M19.90 Unspecified osteoarthritis, unspecified site; Z98.890 Other specified postprocedural states; Z79.899 Other long term (current) drug therapy; Z68.42 Body mass index [BMI] 45.0-49.9, adult; Z79.891 Long term (current) use of opiate analgesic; Z88.8 Allergy status to other drugs, medicaments and biological substances